=== PATIENT | female | born 1965 | race Caucasian/White ===

== ENCOUNTER 2016-09-12 18:22 | Emergency (ER) | payer MEDICARE ==
[~2016-09-12 18:22] MED LIST: KLO5T PO; LORA10TA7 PO; OXYC5TAB72 PO
[2016-09-12 18:43] VITALS: BP 116/69; PULSE 64; RESP 16; O2SAT 96
[2016-09-12 18:59] VITALS: BP 116/69; PULSE 64; RESP 16; O2SAT 96
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
[2016-09-12 20:24] VITALS: BP 115/77; PULSE 57; O2SAT 96
== END 2016-09-12 20:25 | disposition home or self-care (01) ==
LOC: SED 18:22
DX: F43.0 Acute stress reaction (principal); K21.9 Gastro-esophageal reflux disease without esophagitis; Z87.891 Personal history of nicotine dependence; Z88.8 Allergy status to other drugs, medicaments and biological substances; Z88.0 Allergy status to penicillin; Z88.5 Allergy status to narcotic agent

== ENCOUNTER 2016-11-01 09:46 | Emergency (ER) | payer MEDICARE ==
[~2016-11-01] VITALS: Ht 165.1 cm; Wt 81.4 kg
[2016-11-01 09:47] VITALS: BP 134/87; PULSE 75; RESP 16; O2SAT 100
--- NOTE | 2016-11-01 09:51 | ED.REPORT ---
HPI-Chest Pain 40 and Over Date of Service Nov 01, 2016 ED Provider: Arun Win DO 50 year old female with a history of GERD, fibromyalgia, anxiety, and depression presents to the ER accompanied by a male director of search engine marketing complaining of a few days of intermittent chest pain and shortness of breath. Associated symptoms of headache, generalized myalgias, nausea, and vomiting, though she states that she is currently hungry. She has not taken any of her medications today. Patient ceased taking her Cymbalta, Wellbutrin, and BuSpar two weeks ago because she is unable to afford them due to insurance changes. Also takes Clonazepam, though she has been noncompliant for the past few days due to her vomiting. Nursing Notes Stated Complaint: CHEST PAIN/SOB Chief Complaint: General Complaint Nursing Notes Reviewed: Yes Allergies: Coded Allergies: pregabalin (Verified Allergy, Severe, "violently vomiting", 11/30/14) venlafaxine (Verified Allergy, Intermediate, nausea, 09/25/14) Penicillins (Verified Allergy, Unknown, Hives, 09/26/14) escitalopram (Verified Adverse Reaction, Intermediate, nausea, 09/25/14) morphine (Verified Adverse Reaction, Intermediate, nausea, 09/26/14) Scheduled Clonazepam (Clonazepam) 0.5 Mg Tab 0.5-1 TAB PO PRN Loratadine (Loratadine) 10 Mg Tablet 10 MG PO DAILY Scheduled PRN Ondansetron (Zofran) 4 Mg Tablet 4 MG PO Q4H PRN PRN For Nausea oxyCODONE (oxyCODONE) 5 Mg Tablet 10 MG PO Q4H PRN PRN For Pain General Time Seen by MD: 09:50 Chief Complaint Chest pain, Shortness of breath Hx Obtained From: Patient Arrived By: Walk-in Sudden in Onset?: No Onset Occurred: 3 days ago ("a few days") Symptom Duration: Intermittent Location: : Substernal Quality: Painful Severity: Current: Moderate Severity: Maximum: Moderate Associated with: Reports: Nausea, Shortness of Breath, Vomiting Context Related History: Reports: Anxiety disorder, GERD Similar Sx Previous: No Past Medical History Past Medical History Fibromyalgia Anxiety Disorder Depression Reports: GERD, Denies: Hypertension Past Surgical History Hysterectomy: 2012 Discectomy:2013 Cholecystectomy: 1988 Appendectomy 1988 C-Spine Surgery two months ago Right knee Smoking History Former Smoker Social History 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 Physical Exam Initial Vital Signs Vital Signs (First) Date Time Temp Pulse Resp B/P Pulse Ox O2 Delivery O2 Flow Rate FiO2 11/01/16 09:47 75 16 134/87 100 Room Air Initial VS: Reviewed Head / Eyes: Atraumatic, Normocephalic Neck: Supple, Non-tender, Full range of motion Extremities: Vascular intact, Neuro intact, No swelling, No tenderness Skin: Warm, Dry, No cyanosis Neurologic: Alert, Oriented, Nonfocal General/Constitutional: Awake, Alert, Well developed, Well nourished Behavior: Positive: Tearful Hysterical. Respiratory / Chest: Breath sounds NL, Breath sounds = bilat, No respiratory distress, No rales, No rhonchi, No wheezing Anterior chest wall tenderness. Cardiovascular: Heart rate NL, Regular rhythm, Heart sounds NL, No murmurs, Peripheral circulation NL, Pulses = bilaterally, No gross BP differential Abdomen: Soft, Non-tender, No guarding, No rebound, No distention Interpretation & Diagnostics Lab Results Interpretation Result Diagram: 11/01/16 1025 11/01/16 1025 Test 11/01/16 10:25 White Blood Count 6.9th/mm3 (3.8-10.1) Red Blood Count 4.89mil/mm3 (3.90-5.20) Hemoglobin 14.7g/dL (12.0-15.6) Hematocrit 42.9% (35.0-46.0) Mean Corpuscular Volume 87.7fL (81-100) Mean Corpuscular Hemoglobin 30.1pg (27.0-35.0) Mean Corpuscular Hemoglobin Concent 34.3% (32.0-37.0) Red Cell Distribution Width 13.0% (12.3-15.4) Platelet Count 187bil/L (150-400) Neutrophils (%) (Auto) 67.3% (40-74) Lymphocytes (%) (Auto) 26.5% (14-46) Monocytes (%) (Auto) 5.6% (4-12) Eosinophils (%) (Auto) 0.4% (0-5) Basophils (%) (Auto) 0.1% (0-3) Sodium Level 136mEq/L (134-144) Potassium Level 4.1mEq/L (3.5-5.2) Chloride Level 98mEq/L (97-108) Carbon Dioxide Level 23mmol/L (18-29) Blood Urea Nitrogen 26mg/dL (6-24) Creatinine 0.88mg/dL (0.57-1.00) Estimat Glomerular Filtration Rate 97mL/min (>59) Glucose Level 108mg/dL (60-99) Calcium Level 9.6mg/dL (8.5-10.1) Magnesium Level 2.0mg/dL (1.6-2.6) Total Bilirubin 0.5mg/dL (0.0-1.2) Aspartate Amino Transf (AST/SGOT) 12U/L (0-50) Alanine Aminotransferase (ALT/SGPT) 10U/L (0-32) Alkaline Phosphatase 62U/L (25-150) Troponin T < 0.010ug/L (0.0-0.011) Total Protein 7.0g/dL (6.4-8.4) Albumin 4.5g/dL (3.4-5.0) Lipase 27U/L (13-60) ECG Interpretation ECG Interpretation: Normal Unchanged from 11/30/2014 Time: 10:08 Interpreted by: ED physician X-Ray Chest Interpretation Chest Xray Interpretation: IMPRESSION: Normal chest Dictated by: Giovanni Santiago M.D. on 11/01/2016 at 10:31 Approved by: Giovanni Santiago M.D. on 11/01/2016 at 10:31 View: AP & lat Interpretation / Wet Read by: Interpret - Radiologist Re-Eval/Medical Decision Med Decision/Clinical Course Doubt any life-threatening pathology, symptoms seem more related to abruptly stopping her antidepressant and benzodiazepine. She is recommended to resume her benzodiazepine, use frev-orx-ecbsvpe liquid antacids and Zofran and follow-up closely with her PCP. She denies suicidal ideations. Return and follow-up precautions given. Source of Hx: Old records Time of Eval: 11:18 Re-Evaluation/Progress Note: Pain is improved. Time of Eval: 11:23 Re-Evaluation/Progress Note: Discussed physical lab and imaging results and plan to discharge. Patient is amenable to the plan. Return precautions given. All other questions addressed. Counseled Regarding: Diagnosis, Lab results, Need for follow-up, When/why to return to ED Discharge & Departure Primary Impression: Chest pain Additional Impression: Nausea & vomiting Disposition: Home Discharge Condition All VS Reviewed: Yes Condition: Stable Patient Instructions: Chest Pain (DC) Additional Instructions: I expect that your symptoms are due to recently stopping your medications. Take Zofran as prescribed for nausea/vomiting. Take lrbu-ifv-impdewv liquid antacid as directed (Maalox, Mylanta, or Gaviscon). Continue your Clonazepam. Call Dr. Archuleta' office to discuss medications. Request less expensive antidepressant. Return to the ER if you develop new or uncontrollable chest pain, shortness of breath, profuse sweating, or any other concerning symptoms. Referrals: Delia Archuleta MD (PCP) Agibe Attestation Portions of this note were transcribed by Cholo Ash. I, Dr. Win, personally performed the history, physical exam and medical decision-making; I reviewed and confirmed the accuracy of the information in the transcribed note. Signed by: Jovon Hatch, 11/01/2016 and 11:37 copies to: Delia Archuleta MD, Timothy S DO Nov 01, 2016 09:51 CHOLO ASH Nov 01, 2016 10:00
[2016-11-01] MEDS ORDERED: LORazepam 2 mg Tablet PO ONE (10:00)
[2016-11-01] MEDS ORDERED: Ondansetron 8 mg ODT Tablet PO ONE (10:00)
[2016-11-01] MEDS ORDERED: LidocaineVisc 2%:Antacid 1:1 10 mL Syringe PO ONE (10:00)
--- NOTE | 2016-11-01 10:33 | DRSVH ---
PROCEDURE: X-RAY CHEST, TWO VIEWS ([id number]) INDICATIONS: chest pain, vomiting TECHNIQUE: 2 views of the chest were acquired. COMPARISON: 11/30/2014 FINDINGS: Surgical changes and devices: Surgical clips right upper quadrant. Surgical plate lower cervical spin e. Lungs and pleura: No pleural effusions or pneumothorax. Lungs are clear. Mediastinum: Mediastinal contours are normal. Heart size is normal. Bones and chest wall: No suspicious bony abnormalities. Soft tissues appear unremarkable. IMPRESSION: Normal chest Dictated by: Giovanni Santiago M.D. on 11/01/2016 at 10:31 Approved by: Giovanni Santiago M.D. on 11/01/2016 at 10:31
[2016-11-01 10:40] LABS: BASOPHILS % (AUTO) 0.1 % (0-3); EOSINOPHILS % (AUTO) 0.4 % (0-5); MONOCYTES % (AUTO) 5.6 % (4-12); Mean Corpuscular Hemoglobin 30.1 pg (27.0-35.0); Mean Corpuscular Volume 87.7 fL (81-100); NEUTROPHILS % (AUTO) 67.3 % (40-74); Platelet Count 187 bil/L (150-400)
[2016-11-01 10:50] VITALS: BP 118/77; PULSE 70; RESP 18; O2SAT 95
[2016-11-01 11:12] LABS: Lipase 27 U/L (13-60)
[2016-11-01 11:13] LABS: TROPONIN T < 0.010 ug/L (0.0-0.011)
[2016-11-01] MEDS ORDERED: ONDA4TAB6 PO (11:31)
[2016-11-01 11:48] VITALS: BP 127/76; PULSE 72; RESP 18; O2SAT 98
== END 2016-11-01 11:49 | disposition home or self-care (01) ==
LOC: SED 09:46
DX: R07.2 Precordial pain (principal); R11.2 Nausea with vomiting, unspecified; R51 Headache; M79.1 Myalgia; K21.9 Gastro-esophageal reflux disease without esophagitis; I10 Essential (primary) hypertension; Z87.891 Personal history of nicotine dependence; Z88.0 Allergy status to penicillin; Z88.5 Allergy status to narcotic agent; Z88.8 Allergy status to other drugs, medicaments and biological substances

== ENCOUNTER 2016-11-21 16:51 | Emergency (ER) | payer MEDICARE ==
[~2016-11-21] VITALS: Ht 167.6 cm; Wt 77.3 kg
[~2016-11-21 16:51] MED LIST changes: +ONDA4TAB6 PO
[2016-11-21 16:55] VITALS: BP 112/80; PULSE 79; RESP 20; O2SAT 97
--- NOTE | 2016-11-21 17:16 | ED.REPORT ---
HPI-Extremity Problem Lower Date of Service Nov 21, 2016 ED Provider: History of Present Illness: fall thru a deck 1 week ago at home. left leg bruising. gets chronic pain meds from DR. Archuleta. out of pain meds for 4 days. using ibuprofen. has not been seen anywhere for this. pain Nursing Notes Stated Complaint: LEFT LEG INJURY Chief Complaint: Extremity Trauma Nursing Notes Reviewed: Yes Allergies: Coded Allergies: pregabalin (Verified Allergy, Severe, "violently vomiting", 11/21/16) buspirone (Verified Allergy, Intermediate, sick, 11/21/16) venlafaxine (Verified Allergy, Intermediate, nausea, 11/21/16) Penicillins (Verified Allergy, Unknown, Hives, 11/21/16) escitalopram (Verified Adverse Reaction, Intermediate, nausea, 11/21/16) morphine (Verified Adverse Reaction, Intermediate, nausea, 11/21/16) Scheduled Clonazepam (Clonazepam) 0.5 Mg Tab 0.5-1 TAB PO PRN Loratadine (Loratadine) 10 Mg Tablet 10 MG PO DAILY Scheduled PRN Ondansetron (Zofran) 4 Mg Tablet 4 MG PO Q4H PRN PRN For Nausea oxyCODONE (oxyCODONE) 5 Mg Tablet 10 MG PO Q4H PRN PRN For Pain General Time Seen by MD: 17:15 Chief Complaint Leg injury left Hx Obtained From: Patient Onset Occurred: 1 week ago Symptom Duration: Since onset Caused by: Accidental Context: Occurred at: Home injury Past Medical History Past Medical History Fibromyalgia Anxiety Disorder Depression Reports: GERD, Denies: Asthma Past Surgical History Hysterectomy: 2012 Discectomy:2013 breast reduction Cholecystectomy: 1988 Appendectomy 1988 C-Spine Surgery two months ago Right knee Reports: Tubal ligation Smoking History Former Smoker (qu9it 3 years ago) Social History 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 Other Social History: Occupation no work or school 11/21/2016 disabled by fibromalygia Ambulatory Status Independent Review of Systems Basic Review of Systems Eyes: Vision NL, No discharge : No dysuria, No frequency Psychiatric: Normal thought content Physical Exam Initial Vital Signs Vital Signs (First) Date Time Temp Pulse Resp B/P Pulse Ox O2 Delivery O2 Flow Rate FiO2 11/21/16 16:55 37.3 79 20 112/80 97 Room Air Initial VS: Reviewed, Vital signs normal General/Constitutional: Well-developed, Well-nourished Back: No CVA tenderness Psychiatric: Mood/affect normal, Behavior normal, Normal thought content left lower leg with extensive ecchymosis, ecchymosis is trending towerd ankle. Minimal swelling on ankle and foot. Ecchymosis is yellow and greeen General/Constitutional: Awake, Alert, No acute distress, Well appearing, Well developed, Well hydrated Respiratory / Chest: Atraumatic, Breath sounds NL, Breath sounds = bilat, No respiratory distress Cardiovascular: Heart rate NL, Regular rhythm, Heart sounds NL, No gallop Interpretation & Diagnostics Interpretation & Diagnostics: PROCEDURE: US VEINOUS LEG DUPLEX UNILATERAL, LEFT INDICATIONS: Leg injury one week ago. TECHNIQUE: Real-time imaging, as well as color and pulse Doppler interrogation, were performed of the lower extremity deep veins from the inguinal ligament to the popliteal fossa. COMPARISON: None. FINDINGS: The deep veins are normally compressible, and free of intraluminal thrombus. Color and pulse Doppler demonstrate normal phasic intraluminal flow. There is normal augmentation response to distal compression maneuver. IMPRESSION: No evidence of deep vein thrombosis involving the left lower extremity. Dictated by: Karla Mcneill MD, PhD on 11/21/2016 at 18:44 Approved by: Karla Mcneill MD, PhD on 11/21/2016 at 18:44 X-Ray Interpretation Xray Interpretation: INDICATIONS: fall thru deck 1 week ago pain TECHNIQUE: 2 views of the tibia and fibula were acquired. COMPARISON: None. FINDINGS: Bones: No fractures or dislocations. No suspicious bony lesions. Soft tissues: No suspicious soft tissue calcifications or masses. IMPRESSION: No fracture. No osseous lesion. If there are persistent symptoms or clinical suspicion for pathology, then repeat radiographs or advanced imaging (CT, MRI or bone scan) should be considered for further evaluation. Dictated by: Karla Mcneill MD, PhD on 11/21/2016 at 17:51 Approved by: Karla Mcneill MD, PhD on 11/21/2016 at 17:52 Re-Eval/Medical Decision Med Decision/Clinical Course 50 year old female on chronic pain management reports being out for 4 days, presents for evualation of bruising on left lower leg. Injury happned at home 1 week ago after fall through a deck. This is patient's first visit for this injury. She will get a refill of her pain medication tomorrow. US is negatvie for any clot formation. The x-ray is negative for any bony damage. No sign of compartment syndrome or fracture. Source of Hx: Old records Discharge & Departure Impression: Primary Impression: Contusion of leg, left Encounter type: initial encounter Qualified Code: S80.12XA - Contusion of left lower leg, initial encounter Disposition: Home Patient Instructions: Contusions in Adults (ED) Additional Instructions: The x-ray is negative for any sign of fracture. The ultrasound is negative for sign of a blood clot. You have been provided a dose of your regular ongoing pain medications and 1 to go home on. Physical therapy may be helpful to have this resolve. continue with movement. It is important to keep moving the leg. REturn with any concerns. Referrals: Delia Archuleta MD (PCP) EDSupervising Provider for APC: Mela Ramos MD copies to: Delia Archuleta MD, Sue ARNP Nov 21, 2016 17:16
--- NOTE | 2016-11-21 17:53 | DRSVH ---
PROCEDURE: X-RAY LEFT TIBIA/FIBULA, TWO VIEWS ([id number]) INDICATIONS: fall thru deck 1 week ago pain TECHNIQUE: 2 views of the tibia and fibula were acquired. COMPARISON: None. FINDINGS: Bones: No fractures or dislocations. No suspicious bony lesions. Soft tissues: No suspicious soft tissue calcifications or masses. IMPRESSION: No fracture. No osseous lesion. If there are persistent symptoms or clinical suspicion f or pathology, then repeat radiographs or advanced imaging (CT, MRI or bone scan) should be considered for further evaluation. Dictated by: Karla Mcneill MD, PhD on 11/21/2016 at 17:51 Approved by: Karla Mcneill MD, PhD on 11/21/2016 at 17:52
[2016-11-21] MEDS ORDERED: HYDROcodone-APAP 10-325 mg PO ONE (18:20)
[2016-11-21 18:41] VITALS: BP 109/69; PULSE 65; RESP 20; O2SAT 99
--- NOTE | 2016-11-21 18:46 | DRSVH ---
PROCEDURE: US VEINOUS LEG DUPLEX UNILATERAL, LEFT INDICATIONS: Leg injury one week ago. TECHNIQUE: Real-time imaging, as well as color and pulse Doppler interrogation, were performed of the lower extr emity deep veins from the inguinal ligament to the popliteal fossa. COMPARISON: None. FINDINGS: The deep veins are normally compressible, and free of intraluminal thrombus. Color and pu lse Doppler demonstrate normal phasic intraluminal flow. There is normal augmentation response to di stal compression maneuver. IMPRESSION: No evidence of deep vein thrombosis involving the left lower extremity. Dictated by: Karla Mcneill MD, PhD on 11/21/2016 at 18:44 Approved by: Karla Mcneill MD, PhD on 11/21/2016 at 18:44
== END 2016-11-21 18:42 | disposition home or self-care (01) ==
LOC: SED 16:51
DX: S80.12XA Contusion of left lower leg, initial encounter (principal); W13.8XXA Fall from, out of or through other building or structure, initial encounter; Y93.9 Activity, unspecified; Y92.009 Unspecified place in unspecified non-institutional (private) residence as the place of occurrence of the external cause; Y99.9 Unspecified external cause status; K21.9 Gastro-esophageal reflux disease without esophagitis; Z87.891 Personal history of nicotine dependence; Z79.899 Other long term (current) drug therapy; Z88.0 Allergy status to penicillin; Z88.1 Allergy status to other antibiotic agents; Z88.5 Allergy status to narcotic agent
CPT/HCPCS: 73590; 93970; 96372; 99284; J1885